=== PATIENT | male | born 2000 | race Caucasian/White ===

== ENCOUNTER 2023-06-20 17:51 | Emergency (ER) | payer BC ==
[~2023-06-20] VITALS: Ht 180.3 cm; Wt 70.5 kg
[~2023-06-20 17:51] MED LIST: NO HOME MEDICATIONS
[2023-06-20 18:08] VITALS: BP 136/74; TEMP 99.4
[2023-06-20 19:43] VITALS: PULSE 62
== END 2023-06-20 19:43 | disposition home or self-care (01) ==
LOC: COL.ER 17:51
DX: S09.90XA Unspecified injury of head, initial encounter (principal); S00.12XA Contusion of left eyelid and periocular area, initial encounter; S00.11XA Contusion of right eyelid and periocular area, initial encounter; S00.33XA Contusion of nose, initial encounter; F17.290 Nicotine dependence, other tobacco product, uncomplicated; W50.0XXA Accidental hit or strike by another person, initial encounter; Y92.310 Basketball court as the place of occurrence of the external cause; Y93.67 Activity, basketball